=== PATIENT | male | born 1975 | race Caucasian/White ===

== ENCOUNTER 2017-07-17 09:34 | Emergency (ER) | payer SELFPAY ==
[2017-07-17] MEDS ORDERED: Ketorolac Tromethamine 60 MG/2 ML VIAL ONE (10:26)
--- NOTE | 2017-07-17 10:36 | RAD ---
LEFT FOREARM 2 VIEWS: HISTORY: Trauma, left forearm pain. FINDINGS/IMPRESSION: The left radius and ulna appear intact. POS: [facility]
--- NOTE | 2017-07-17 10:38 | RAD ---
RADIOGRAPH LEFT WRIST 3 VIEWS: HISTORY: This is a 42-year-old male status post left wrist trauma after fall 2 days ago. FINDINGS: No fracture is identified. If there is snuffbox tenderness that suggests an occult fracture, then e general recommendation is immobilization and followup imaging in 5-10 days. There are mild to mode rate degenerative changes at the 1st CMC joint. There is no dislocation or subluxation. The rest of the joints are essentially normal. IMPRESSION: 1. No evidence for fracture. 2. Mild to moderate osteoarthrosis of the 1st carpometacarpal joint. POS: [facility]
== END 2017-07-17 10:40 | disposition home or self-care (01) ==
LOC: SCSER 09:34
DX: S63.502A Unspecified sprain of left wrist, initial encounter (principal); I10 Essential (primary) hypertension; F17.210 Nicotine dependence, cigarettes, uncomplicated; W19.XXXA Unspecified fall, initial encounter
CPT/HCPCS: 96372; J1885